=== PATIENT | male | born 1945 | race African-American/Black ===

== ENCOUNTER 2021-02-05 11:18 | Outpatient (CLI) | payer MEDICARE | END 2021-02-05 11:19 | disposition home or self-care (01) | LOC: MADRAD 11:18 | PROVIDERS: ATTEND Physician Assistant | DX: G62.9 Polyneuropathy, unspecified (principal); M47.816 Spondylosis without myelopathy or radiculopathy, lumbar region | CPT/HCPCS: 72100 ==